=== PATIENT | male | born 1960 | race American Indian/Alaskan Native ===

== ENCOUNTER 2018-02-20 12:48 | Day surgery (SDC) | payer MEDICARE, MEDICAID ==
[2018-02-20] MEDS ORDERED: Lidocaine Hydrochloride 5 ML INJ ONE (15:45)
[2018-02-20] MEDS ORDERED: Iohexol 240 (50 ml) ONE (15:45)
[2018-02-20] MEDS ORDERED: Sodium Chloride 0.9% 20 ML IV ONE (15:45)
--- NOTE | 2018-02-20 17:38 | RAD ---
Date of service: 02/20/2018 PROCEDURE: Intraoperative Fluoroscopy. HISTORY: CERVICAL RADICULOPATHY FINDINGS: Fluoroscopic assistance was provided. Fluoroscopy time = 42.2 sec. Radiation dose = 2.37 mGy. Please refer to the operative report from RAMONA Bradley, , MD [facility].
[2018-02-20 19:28] VITALS: RESP 16
[2018-02-20 19:32] VITALS: BP 179/97; PULSE 89; TEMP 97.9; O2SAT 98
--- NOTE | 2018-02-21 03:03 | OP ---
PROCEDURE DATE: 02/20/2018 SURGEON: Oni Luo MD. OPERATIVE PROCEDURE: Epidural steroid injection, interlaminar approach with fluoroscopic guidance. INJECTATE: A total of 5.0 mL consisting of 2.5 mL of Kenalog (40 mg/mL)/Celestone (6 mg/mL) with the remainder of saline. FINDINGS: No contrast was used. PROCEDURE: The patient was prepped and draped in a sterile fashion in the prone position after informed consent was signed and all patient questions were answered including the risks, benefits, alternative treatment options, and prognosis. The risks include but are not limited to infection, allergic reaction, nerve damage, stroke, paralysis, epidural hematoma, syncope, headache, respiratory or cardiac arrest, spinal cord injury, and scar formation. Using a paramedian approach from the side mentioned above, the region overlying the inferior lamina was localized under fluoroscopic visualization and the soft tissues overlying this structure were infiltrated with 4 mL of 1% lidocaine without epinephrine. A #17 gauge Tuohy needle was inserted into the epidural space using a paramedian approach. The epidural space was localized using loss of resistance after negative aspirate for air, blood, and CSF. A 2 mL volume of Omnipaque-300 was injected into the epidural space and the flow of contrast was observed. Radiographs were obtained for documentation purposes. The injectate was administered into the level noted above. The patient tolerated the procedure well and was discharged after an appropriate period of observation. If there are any complications, the patient was instructed to call us. The patient is to follow up with the requesting physician in one to two weeks. Oni Luo MD
--- NOTE | 2018-02-21 12:21 | CARD ---
APPROVED REPORT Date of service: 02/20/2018 EKG Measurement Heart [id number] <Conclusion> Normal sinus rhythm Left atrial enlargement T wave abnormality, consider lateral ischemia Abnormal ECG
== END 2018-02-20 16:36 | disposition home or self-care (01) ==
LOC: C.SDS 12:48
PROVIDERS: ATTEND Neuromusculoskeletal Medicine, Sports Medicine
DX: M54.12 Radiculopathy, cervical region (principal); I10 Essential (primary) hypertension; E11.9 Type 2 diabetes mellitus without complications; E78.5 Hyperlipidemia, unspecified; J44.9 Chronic obstructive pulmonary disease, unspecified; I25.10 Atherosclerotic heart disease of native coronary artery without angina pectoris; I25.2 Old myocardial infarction; Z87.891 Personal history of nicotine dependence
CPT/HCPCS: 62321; 93005; J1100